=== PATIENT | male | born 1950 | race Caucasian/White ===

== ENCOUNTER 2020-01-22 22:10 | Emergency (ER) | payer OTHER ==
[~2020-01-22] VITALS: Ht 170.2 cm; Wt 74.8 kg
[~2020-01-22 22:10] MED LIST: ALMOTRIPTAN; AMIT25; AMOCLA875 PO; BP MEDS X2; CYCL10 PO; DICLOFENAC SOD100 G1 TOP; DOCU100 PO; FISH OIL 1,0001 EAC2 PO; FLUT.05NI; GABA300 PO; HYDACE10B PO; HYDACE5; HYDACE5 PO; HYDHCL25 PO; HYOS.375ER PO; IBUP200; IBUP800 PO; LORA.5 PO; METAMUCIL660 GM PO; OXYACE7.5T PO; OXYC5 PO; PARO20; PRED20; PRED20 PO; PROC25S PR; PROM25 PO; PROP40; Pravachol40 MG PO; Prazosin HCl2 MG PO; RXHYOS.125 PO; TIZA4 PO; TRAM50; TRAM50 PO; VENL75ER PO; Vitamin D2000 UNIT PO
[2020-01-22] MEDS ORDERED: VERA180ERB PO (22:27)
[2020-01-22] MEDS ORDERED: KEFLEX500 MG PO (23:41)
== END 2020-01-22 23:46 | disposition home or self-care (01) ==
LOC: ER 22:10
DX: L72.3 Sebaceous cyst (principal); F41.9 Anxiety disorder, unspecified; F17.210 Nicotine dependence, cigarettes, uncomplicated; Z88.5 Allergy status to narcotic agent; Z79.899 Other long term (current) drug therapy
CPT/HCPCS: 10160; 99282-25

== ENCOUNTER 2021-08-22 17:24 | Emergency (ER) | payer OTHER ==
[~2021-08-22] VITALS: Ht 172.7 cm; Wt 76.2 kg
[~2021-08-22 17:24] MED LIST changes: +KEFLEX500 MG PO; +VERA180ERB PO
[2021-08-22] MEDS ORDERED: HYDR1TAB94 PO (18:43)
== END 2021-08-22 19:03 | disposition home or self-care (01) ==
LOC: ER 17:24
DX: M25.562 Pain in left knee (principal); F17.210 Nicotine dependence, cigarettes, uncomplicated; W01.0XXA Fall on same level from slipping, tripping and stumbling without subsequent striking against object, initial encounter; Z79.899 Other long term (current) drug therapy; Z88.5 Allergy status to narcotic agent
CPT/HCPCS: 73562-LT; A9270

== ENCOUNTER 2021-08-26 09:41 | Day surgery (SDC) | payer OTHER ==
[~2021-08-26] VITALS: Ht 172.7 cm; Wt 76.4 kg
[~2021-08-26 09:41] MED LIST changes: +HYDR1TAB94 PO
--- NOTE | 2021-08-26 10:32 | NUR ---
Ambulatory in Day Surgery History, Chart, Medications and Allergies reviewed before start of procedure. Lungs clear T/O to Auscultation. Patient confirms NPO status and agrees with scheduled surgery. Pre-Op teaching done. Pt verbalizes understanding. Patient States Post-Procedure ride home has been arranged.
[2021-08-26] MEDS ORDERED: PRAM.5 PO (10:36)
--- NOTE | 2021-08-26 13:35 | NUR ---
PT VERY VERY RESTLESS, CLIMBING OUT OF BED. AT BS TRYING TO CALM PT. PT STANDING ON RIGHT LEG USING WALK TO NOT BEAR WT ON LEFT LEG. EDUCATED TO NOT BEAR WT. PT'S BACK PAIN LESSENING WITH STANDING PT BECOMING LESS RESTLESS
--- NOTE | 2021-08-26 14:15 | NUR ---
PT A LITTLE MORE CALM AND LESS RESTLESS. 2ND PAIN PILL GIVEN. Discharge instructions reviewed with patient AND . Patient verbalizes understanding. Copy given to patient to take home. Dressing to procedure site clean, dry, intact with no visible drainage, swelling, erythema or bruising noted. MOVING TOES WELL, PINK, TOES COOL AND CAP REFILL 4. Discharged via wheelchair to private car for ride home WITH
== END 2021-08-26 23:11 | disposition home or self-care (01) ==
LOC: ORSCMMR 09:41 → ORD 12:45 → ORSCMMR 23:11
PROVIDERS: Orthopaedic Surgery
PROC: 0LQM0ZZ Repair Left Upper Leg Tendon, Open Approach (ICD-10-PCS; principal; 2021-08-26 10:30)
DX: S76.122A Laceration of left quadriceps muscle, fascia and tendon, initial encounter (principal); I10 Essential (primary) hypertension; G47.33 Obstructive sleep apnea (adult) (pediatric); F43.10 Post-traumatic stress disorder, unspecified; F17.210 Nicotine dependence, cigarettes, uncomplicated; Z79.899 Other long term (current) drug therapy
CPT/HCPCS: A9270; J0171; J0690; J1100; J1885; J2250; J2270; J2405; J2704; J2795; J3010; J7120

== ENCOUNTER 2022-12-09 18:41 | Emergency (ER) | payer OTHER ==
[~2022-12-09] VITALS: Ht 172.7 cm; Wt 77.1 kg
[~2022-12-09 18:41] MED LIST changes: +PRAM.5 PO
[2022-12-09 18:51] VITALS: BP 165/99
== END 2022-12-09 20:37 | disposition home or self-care (01) ==
LOC: ER 18:41
DX: S76.111A Strain of right quadriceps muscle, fascia and tendon, initial encounter (principal); W01.0XXA Fall on same level from slipping, tripping and stumbling without subsequent striking against object, initial encounter; Z88.5 Allergy status to narcotic agent; Z79.899 Other long term (current) drug therapy; F43.10 Post-traumatic stress disorder, unspecified; F17.210 Nicotine dependence, cigarettes, uncomplicated
CPT/HCPCS: 29505; 73562-RT; 99283-25

== ENCOUNTER 2023-01-12 08:31 | Day surgery (SDC) | payer OTHER ==
[~2023-01-12] VITALS: Ht 172.7 cm; Wt 76.9 kg
[2023-01-12] VITALS (15 sets, daily range): BP systolic 137–181; BP diastolic 85–133
[~2023-01-12 08:31] MED LIST changes: +Prinivil10 MG PO; +VERA240ER PO
--- NOTE | 2023-01-12 08:45 | NUR ---
PT TO DAY SURGERY FOR RIGHT QUADRICEPT TENDON REPAIR; PT AT BEDSIDE AND IS RIDE HOME. PLAN OF CARE DISCUSSED.
--- NOTE | 2023-01-12 14:27 | NUR ---
0854 Patient up to Ambulate independently. Gait steady. Discharge instructions reviewed with patient. Patient verbalizes understanding. Copy given to patient to take home. Dressing to procedure site clean, dry, intact with no visible drainage, swelling, erythema or bruising noted. Patient States Post-Procedure ride home has been arranged. Discharged via wheelchair to private car for ride home. PT BELONGINGS AND CRUTCH RETURNED TO PT.
== END 2023-01-12 13:55 | disposition home or self-care (01) ==
LOC: ORSCMMR 08:31
PROVIDERS: Orthopaedic Surgery
PROC: 0LQL0ZZ Repair Right Upper Leg Tendon, Open Approach (ICD-10-PCS; principal; 2023-01-12 10:00)
DX: S76.111A Strain of right quadriceps muscle, fascia and tendon, initial encounter (principal); W18.09XA Striking against other object with subsequent fall, initial encounter; I10 Essential (primary) hypertension; F17.210 Nicotine dependence, cigarettes, uncomplicated; F43.10 Post-traumatic stress disorder, unspecified; E78.5 Hyperlipidemia, unspecified; Z79.899 Other long term (current) drug therapy
CPT/HCPCS: A9270; J0690; J1100; J1170; J1790; J1885; J2371; J2405; J2704; J3010; J7120

== ENCOUNTER 2023-06-09 11:24 | Emergency (ER) | payer OTHER ==
[~2023-06-09] VITALS: Ht 172.7 cm; Wt 77.1 kg
[~2023-06-09 11:24] MED LIST changes: +Amiodarone HCl200 MG PO; +ERYT.5TO BOTHEYES; +FURO40 PO; +JARDIANCE10 MG PO; +METO50ER PO; +NICO21TP TOP; +SILD50TA PO; +SPIR25 PO; +XARELTO20 MG PO
[2023-06-09 11:27] VITALS: BP 84/62
== END 2023-06-09 13:15 | disposition left against medical advice (07) ==
LOC: ER 11:24
DX: R03.1 Nonspecific low blood-pressure reading (principal); Z53.29 Procedure and treatment not carried out because of patient's decision for other reasons; R07.89 Other chest pain; R42 Dizziness and giddiness; R06.02 Shortness of breath
CPT/HCPCS: 36415; 93005; 93010; 99282-25

== ENCOUNTER 2023-08-06 16:41 | Emergency (ER) | payer OTHER ==
[~2023-08-06] VITALS: Ht 172.7 cm; Wt 80.3 kg
[~2023-08-06 16:41] MED LIST changes: +Prednisone20 MG PO
[2023-08-06] MEDS ORDERED: ATOR40TA PO (17:21)
[2023-08-06] MEDS ORDERED: LOSARTAN-HCTZ1 EACH PO (17:22)
[2023-08-06] MEDS ORDERED: PRAZ2 INH (17:23)
[2023-08-06] MEDS ORDERED: SAVAYSA60 MG PO (17:24)
[2023-08-06 17:30] VITALS: BP 114/76
[2023-08-06] MEDS ORDERED: Ipratropium/Albuterol SulF 2.5-0.5MG/3 ML Amp INH ONE (17:40)
[2023-08-06 17:47] LABS: BASOPHILS ABSOLUTE AUTO 0.06 K/mm3 (0.00-0.23); BASOPHILS PERCENT AUTO 0 % (0-2); EOSINOPHILS ABSOLUTE AUTO 0.18 K/mm3 (0.00-0.68); EOSINOPHILS PERCENT AUTO 1 % (0-6); Hematocrit 42.8 % (37.0-53.0); Hemoglobin 13.5 g/dL (13.5-17.5); IMMATURE GRAN ABSOLUTE AUTO 0.08 K/mm3 (0.00-0.10); IMMATURE GRAN PERCENT AUTO 1 % (0-1); LYMPHOCYTES ABSOLUTE AUTO 2.67 K/mm3 (0.84-5.20); LYMPHOCYTES PERCENT AUTO 19 % (21-46); MONOCYTES ABSOLUTE AUTO 1.06 K/mm3 (0.16-1.47); MONOCYTES PERCENT AUTO 8 % (4-13); Mean Corpuscular HGB 27.9 pg (26.0-34.0); Mean Corpuscular HGB Conc 31.5 g/dL (31.5-36.5); Mean Corpuscular Volume 88 fL (80-100); Mean Platelet Volume 10.2 fL (9.1-12.4); NEUTROPHILS ABSOLUTE AUTO 9.93 K/mm3 (1.96-9.15); NEUTROPHILS PERCENT AUTO 71 % (41-73); Platelet Count 415 K/mm3 (150-400); RDW Coefficient Variation 16.6 % (11.7-14.2); RDW Standard Deviation 54.2 fL (35.1-46.3); Red Blood Cell Count 4.84 M/mm3 (4.30-5.90); White Blood Cell Count 13.98 K/mm3 (4.00-11.30)
[2023-08-06 18:10] LABS: Albumin, Blood 3.5 g/dL (3.4-5.0); Albumin/Globulin Ratio 0.9 (0.8-1.8); Bilirubin, Total 0.3 mg/dL (0.1-1.0); Bun/Creatinine Ratio 18.2 (12.0-20.0); Creatinine, Blood 1.21 mg/dL (0.60-1.20); Globulin, Blood 4.1 g/dL (2.2-4.0); Potassium, Blood 4.4 mmol/L (3.5-5.5); Total Protein, Blood 7.6 g/dL (6.4-8.2)
[2023-08-06 18:58] LABS: Influenza A, PCR NEGATIVE (NEGATIVE); Influenza B, PCR NEGATIVE (NEGATIVE); Resp Syncytial Virus, PCR NEGATIVE (NEGATIVE); SARS-Cov-2 (COVID-19) PCR, MMC NEGATIVE (NEGATIVE)
[2023-08-06] MEDS ORDERED: AMOCLA875 PO (19:37)
[2023-08-06] MEDS ORDERED: Amoxicillin/Clavulanate K 875 MG Tab PO ONE (19:40)
== END 2023-08-06 19:56 | disposition home or self-care (01) ==
LOC: ER 16:41
PROVIDERS: Emergency Medicine
DX: J18.9 Pneumonia, unspecified organism (principal); J44.1 Chronic obstructive pulmonary disease with (acute) exacerbation; I13.0 Hypertensive heart and chronic kidney disease with heart failure and stage 1 through stage 4 chronic kidney disease, or unspecified chronic kidney disease; I50.9 Heart failure, unspecified; N18.9 Chronic kidney disease, unspecified; I48.91 Unspecified atrial fibrillation; Z88.5 Allergy status to narcotic agent; Z88.8 Allergy status to other drugs, medicaments and biological substances; Z79.01 Long term (current) use of anticoagulants; Z79.899 Other long term (current) drug therapy
CPT/HCPCS: 0241U; 71046; 80053; 83880; 85025; 94640; 94664; 99285-25; A9270

== ENCOUNTER 2023-09-29 01:03 | Observation (INO) | payer OTHER ==
[~2023-09-29] VITALS: Ht 172.7 cm; Wt 80.3 kg
[~2023-09-29 01:03] MED LIST changes: +ATOR40TA PO; +LOSARTAN-HCTZ1 EACH PO; +PRAZ2 INH; +SAVAYSA60 MG PO
[2023-09-29 01:23] LABS: BASOPHILS ABSOLUTE AUTO 0.04 K/mm3 (0.00-0.23); BASOPHILS PERCENT AUTO 0 % (0-2); EOSINOPHILS ABSOLUTE AUTO 0.14 K/mm3 (0.00-0.68); EOSINOPHILS PERCENT AUTO 1 % (0-6); Hematocrit 39.8 % (37.0-53.0); Hemoglobin 12.6 g/dL (13.5-17.5); IMMATURE GRAN ABSOLUTE AUTO 0.03 K/mm3 (0.00-0.10); IMMATURE GRAN PERCENT AUTO 0 % (0-1); LYMPHOCYTES ABSOLUTE AUTO 2.93 K/mm3 (0.84-5.20); LYMPHOCYTES PERCENT AUTO 25 % (21-46); MONOCYTES ABSOLUTE AUTO 1.07 K/mm3 (0.16-1.47); MONOCYTES PERCENT AUTO 9 % (4-13); Mean Corpuscular HGB 28.3 pg (26.0-34.0); Mean Corpuscular HGB Conc 31.7 g/dL (31.5-36.5); Mean Corpuscular Volume 89 fL (80-100); Mean Platelet Volume 10.3 fL (9.1-12.4); NEUTROPHILS ABSOLUTE AUTO 7.38 K/mm3 (1.96-9.15); NEUTROPHILS PERCENT AUTO 64 % (41-73); Platelet Count 356 K/mm3 (150-400); RDW Coefficient Variation 16.6 % (11.7-14.2); Red Blood Cell Count 4.45 M/mm3 (4.30-5.90); White Blood Cell Count 11.59 K/mm3 (4.00-11.30)
[2023-09-29] MEDS ORDERED: NS 1,000 ML IV SCH ×2 (01:35→07:45)
[2023-09-29 01:38] LABS: Albumin, Blood 3.3 g/dL (3.4-5.0); Albumin/Globulin Ratio 0.9 (0.8-1.8); Bilirubin, Total 0.2 mg/dL (0.1-1.0); Bun/Creatinine Ratio 19.5 (12.0-20.0); Calcium, Blood 8.5 mg/dL (8.5-10.1); Creatinine, Blood 1.9 mg/dL (0.60-1.20); Globulin, Blood 3.8 g/dL (2.2-4.0); Potassium, Blood 3.9 mmol/L (3.5-5.5); Total Protein, Blood 7.1 g/dL (6.4-8.2)
[2023-09-29] MEDS ORDERED: Amiodarone HCl200 MG PO (01:44)
[2023-09-29] MEDS ORDERED: rOPINIRole HCl 0.25 MG Tab PO ONE (02:15)
[2023-09-29] MEDS ORDERED: Midodrine 5 MG Tab PO SCH (03:28)
[2023-09-29] MEDS ORDERED: NS 500 ML IV SCH (03:30)
[2023-09-29] MEDS ORDERED: Ipratropium/Albuterol SulF 2.5-0.5MG/3 ML Amp INH SCH (03:45)
[2023-09-29] MEDS ORDERED: Midodrine 5 MG Tab PO ONE (04:16)
[2023-09-29] MEDS ORDERED: Enoxaparin 40 MG/0.4 ML SYR SC SCH (09:00)
[2023-09-29] MEDS ORDERED: Metoprolol Succinate 50 MG TABCR PO SCH (09:00)
[2023-09-29] MEDS ORDERED: Apixaban 5 MG Tab PO SCH (09:00)
[2023-09-29] MEDS ORDERED: Amiodarone HCl 200 MG Tab PO SCH (09:00)
[2023-09-29 12:22] LABS: Albumin, Blood 3.1 g/dL (3.4-5.0); Anion Gap 9 mmol/L (3-11); Blood Urea Nitrogen 32 mg/dL (8-24); Bun/Creatinine Ratio 21.9 (12.0-20.0); CO2, Blood 24 mmol/L (21-32); Calcium, Blood 8.2 mg/dL (8.5-10.1); Chloride, Blood 113 mmol/L (98-108); Creatinine, Blood 1.46 mg/dL (0.60-1.20); Glomerular Filtration Rate 51 (60-); Glucose, Blood 100 mg/dL (70-99); Magnesium, Blood 2.5 mg/dL (1.6-2.4); Phosphorus, Blood 3.5 mg/dL (2.5-4.9); Potassium, Blood 3.4 mmol/L (3.5-5.5); Sodium, Blood 143 mmol/L (136-145)
[2023-09-29 13:00] VITALS: BP 111/84
[2023-09-29] MEDS ORDERED: Potassium Chloride 20 MEQ/15 ML UDC PO STA (13:12)
== END 2023-09-30 11:36 | disposition home or self-care (01) ==
LOC: ER 01:03 → ERHOLD 01:04
PROVIDERS: Emergency Medicine; Internal Medicine; ADMIT Family Medicine
DX: I95.9 Hypotension, unspecified (principal); N17.9 Acute kidney failure, unspecified; R79.89 Other specified abnormal findings of blood chemistry; J96.01 Acute respiratory failure with hypoxia; J44.9 Chronic obstructive pulmonary disease, unspecified; I11.0 Hypertensive heart disease with heart failure; I50.22 Chronic systolic (congestive) heart failure; I48.20 Chronic atrial fibrillation, unspecified; E87.6 Hypokalemia; N40.0 Benign prostatic hyperplasia without lower urinary tract symptoms; F17.210 Nicotine dependence, cigarettes, uncomplicated; Z66 Do not resuscitate; Z88.5 Allergy status to narcotic agent; Z88.8 Allergy status to other drugs, medicaments and biological substances; Z79.899 Other long term (current) drug therapy
CPT/HCPCS: 71045; 80053; 80069; 83735; 83880; 84484; 85025; 93005; 93010; 99285-25; A9270; G0378; J7030

== ENCOUNTER 2024-03-23 21:04 | Inpatient (IN) | payer OTHER ==
[~2024-03-23] VITALS: Ht 172.7 cm; Wt 77.3 kg
[2024-03-23 22:10] LABS: BASOPHILS ABSOLUTE AUTO 0.02 K/mm3 (0.00-0.23); BASOPHILS PERCENT AUTO 0 % (0-2); EOSINOPHILS ABSOLUTE AUTO 0.03 K/mm3 (0.00-0.68); EOSINOPHILS PERCENT AUTO 0 % (0-6); Hematocrit 38.4 % (37.0-53.0); Hemoglobin 12.1 g/dL (13.5-17.5); IMMATURE GRAN ABSOLUTE AUTO 0.07 K/mm3 (0.00-0.10); IMMATURE GRAN PERCENT AUTO 0 % (0-1); LYMPHOCYTES ABSOLUTE AUTO 1.39 K/mm3 (0.84-5.20); LYMPHOCYTES PERCENT AUTO 7 % (21-46); MONOCYTES ABSOLUTE AUTO 1.85 K/mm3 (0.16-1.47); MONOCYTES PERCENT AUTO 10 % (4-13); Mean Corpuscular HGB 27.7 pg (26.0-34.0); Mean Corpuscular HGB Conc 31.5 g/dL (31.5-36.5); Mean Corpuscular Volume 88 fL (80-100); NEUTROPHILS PERCENT AUTO 82 % (41-73); Platelet Count 325 K/mm3 (150-400); RDW Coefficient Variation 16.3 % (11.7-14.2); RDW Standard Deviation 52.5 fL (35.1-46.3); Red Blood Cell Count 4.37 M/mm3 (4.30-5.90); White Blood Cell Count 18.76 K/mm3 (4.00-11.30)
[2024-03-23 22:36] LABS: Albumin, Blood 3.5 g/dL (3.4-5.0); Albumin/Globulin Ratio 0.9 (0.8-1.8); Bilirubin, Total 0.7 mg/dL (0.1-1.0); Bun/Creatinine Ratio 23.2 (12.0-20.0); Calcium, Blood 9.3 mg/dL (8.5-10.1); Creatinine, Blood 1.12 mg/dL (0.60-1.20); Potassium, Blood 4.2 mmol/L (3.5-5.5); Total Protein, Blood 7.5 g/dL (6.4-8.2)
[2024-03-23] MEDS ORDERED: ALBU2.5V5 INH (22:53)
[2024-03-24] MEDS ORDERED: Ipratropium/Albuterol SulF 2.5-0.5MG/3 ML Amp INH ONE (00:40)
[2024-03-24 01:26] LABS: CORONAVIRUS COVID-19 AG Negative (NEGATIVE); INFLUENZA A AG Negative (NEGATIVE); INFLUENZA B AG Negative (NEGATIVE)
[2024-03-24] MEDS ORDERED: CefTRIAXone Sodium 1,000 MG in NS 100 ML IV ONE (01:35)
[2024-03-24] MEDS ORDERED: Azithromycin 250 MG Tab PO ONE (01:35)
[2024-03-24] MEDS ORDERED: Acetaminophen 325 MG TABLET PO PRN (02:10)
[2024-03-24] MEDS ORDERED: Ipratropium/Albuterol SulF 2.5-0.5MG/3 ML Amp INH SCH (02:10)
[2024-03-24] MEDS ORDERED: FLU VACC TS2024-25(6MOS UP)/PF 45 MCG/0.5 ML SYRINGE IM ONE (02:10)
[2024-03-24 05:21] LABS: BASOPHILS ABSOLUTE AUTO 0.04 K/mm3 (0.00-0.23); BASOPHILS PERCENT AUTO 0 % (0-2); EOSINOPHILS ABSOLUTE AUTO 0.05 K/mm3 (0.00-0.68); EOSINOPHILS PERCENT AUTO 0 % (0-6); Hematocrit 38.1 % (37.0-53.0); IMMATURE GRAN ABSOLUTE AUTO 0.09 K/mm3 (0.00-0.10); IMMATURE GRAN PERCENT AUTO 1 % (0-1); LYMPHOCYTES ABSOLUTE AUTO 1.41 K/mm3 (0.84-5.20); LYMPHOCYTES PERCENT AUTO 8 % (21-46); MONOCYTES ABSOLUTE AUTO 2.21 K/mm3 (0.16-1.47); MONOCYTES PERCENT AUTO 12 % (4-13); Mean Corpuscular HGB 27.5 pg (26.0-34.0); Mean Corpuscular HGB Conc 31.5 g/dL (31.5-36.5); Mean Corpuscular Volume 87 fL (80-100); Mean Platelet Volume 10.4 fL (9.1-12.4); NEUTROPHILS ABSOLUTE AUTO 14.18 K/mm3 (1.96-9.15); NEUTROPHILS PERCENT AUTO 79 % (41-73); Platelet Count 316 K/mm3 (150-400); RDW Coefficient Variation 16.6 % (11.7-14.2); RDW Standard Deviation 53.3 fL (35.1-46.3); Red Blood Cell Count 4.36 M/mm3 (4.30-5.90); White Blood Cell Count 17.98 K/mm3 (4.00-11.30)
[2024-03-24 05:46] LABS: Albumin, Blood 3.5 g/dL (3.4-5.0); Albumin/Globulin Ratio 0.9 (0.8-1.8); Bilirubin, Total 0.7 mg/dL (0.1-1.0); Bun/Creatinine Ratio 21.1 (12.0-20.0); Calcium, Blood 9.4 mg/dL (8.5-10.1); Creatinine, Blood 1.09 mg/dL (0.60-1.20); Globulin, Blood 4.1 g/dL (2.2-4.0); Magnesium, Blood 2.4 mg/dL (1.6-2.4); Potassium, Blood 4.2 mmol/L (3.5-5.5); Total Protein, Blood 7.6 g/dL (6.4-8.2)
[2024-03-24] MEDS ORDERED: Furosemide 10 MG/ML 4ML Vial IV ONE (08:00)
[2024-03-24] MEDS ORDERED: GuaiFENesin 600 MG TabCR PO SCH (09:00)
[2024-03-24] MEDS ORDERED: Lactobacil 2-S.Thermo-Bifido 1 1 Cap PO SCH (09:00)
[2024-03-24 09:43] LABS: Base Excess Venous 3.3 mmol/L; Bicarbonate Venous 26.4 mmol/L (24.0-30.0); PCO2 Venous 45.7 mmHg (38-42)
[2024-03-24 09:53] LABS: Adenovirus Not Detected (NOT DETECT); Bordetella pertussis Not Detected (NOT DETECT); Chlamydophila pneumoniae Not Detected (NOT DETECT); Coronavirus 229E Not Detected (NOT DETECT); Coronavirus HKU1 Not Detected (NOT DETECT); Coronavirus NL63 Not Detected (NOT DETECT); Coronavirus OC43 Not Detected (NOT DETECT); Human Metapneumovirus Not Detected (NOT DETECT); Human Rhinovirus/Enterovirus Not Detected (NOT DETECT); Influenza A/2009-H1 Not Detected (NOT DETECT); Influenza A/H1 Not Detected (NOT DETECT); Influenza A/H3 Not Detected (NOT DETECT); Influenza B Not Detected (NOT DETECT); Mycoplasma pneumoniae Not Detected (NOT DETECT); Parainfluenza Virus 1 Not Detected (NOT DETECT); Parainfluenza Virus 2 Not Detected (NOT DETECT); Parainfluenza Virus 3 Not Detected (NOT DETECT); Parainfluenza Virus 4 Not Detected (NOT DETECT); Respiratory Syncytial Virus Not Detected (NOT DETECT); SARS-Cov-2 (COVID-19), BioFire Not Detected (NOT DETECT)
[2024-03-24] MEDS ORDERED: ACET500 PO (13:30)
[2024-03-24] MEDS ORDERED: EPLE25 PO (13:32)
[2024-03-24] MEDS ORDERED: OMEP20ER PO (13:34)
[2024-03-24] MEDS ORDERED: PRAZ2 PO ×2 (13:35→13:36)
[2024-03-24] MEDS ORDERED: ROSUVASTATIN CA10 MG PO (13:37)
[2024-03-24] MEDS ORDERED: SERT50 PO (13:38)
[2024-03-24] MEDS ORDERED: ALBU90OI6 INH (13:41)
[2024-03-24 15:42] LABS: Acinetobacter baumannii DNA Not Detected copy/mL (NOT DETECT); Enterobacter cloacae DNA Not Detected copy/mL (NOT DETECT); Escherichia coli DNA Detected Bin 10^5 copy/mL (NOT DETECT); Haemophilus influenzae DNA Not Detected copy/mL (NOT DETECT)
[2024-03-24 15:43] LABS: CTX-M Resistance Gene Not Detected; IMP Resistance Gene Not Detected; KPC Resistance Gene Not Detected; Klebsiella aerogenes DNA Not Detected copy/mL (NOT DETECT); Klebsiella oxytoca DNA Not Detected copy/mL (NOT DETECT); Klebsiella pneumoniae DNA Not Detected copy/mL (NOT DETECT); Moraxella catarrhalis DNA Detected Bin 10^5 copy/mL (NOT DETECT); Proteus sp DNA Not Detected copy/mL (NOT DETECT); Pseudomonas aeruginosa DNA Not Detected copy/mL (NOT DETECT); Serratia marcescens DNA Not Detected copy/mL (NOT DETECT); Staphylococcus aureus DNA Not Detected copy/mL (NOT DETECT); Streptococcus agalactiae DNA Not Detected copy/mL (NOT DETECT); Streptococcus pneumoniae DNA Not Detected copy/mL (NOT DETECT); Streptococcus pyogenes DNA Not Detected copy/mL (NOT DETECT)
[2024-03-24 15:44] LABS: Adenovirus DNA Not Detected (NOT DETECT); Chlamydia pneumonia Not Detected (NOT DETECT); Human Coronavirus RNA Not Detected (NOT DETECT); Human Metapneumovirus RNA Not Detected (NOT DETECT); Influenza virus A RNA Not Detected (NOT DETECT); Legionella pneumophila Not Detected (NOT DETECT); Mycoplasma pneumoniae Not Detected (NOT DETECT); NDM Resistance Gene Not Detected; OXA-48-like Resistance Gene Not Detected; Rhinovirus+Enterovirus RNA Not Detected (NOT DETECT); VIM Resistance Gene Not Detected
[2024-03-24 15:45] LABS: Influenza virus B RNA Not Detected (NOT DETECT); Parainfluenza virus RNA Not Detected (NOT DETECT); Respiratory syncytial Vir RNA Not Detected (NOT DETECT)
--- NOTE | 2024-03-24 15:55 | NUR ---
CALL PLACED TO PHYSICIAN IN RE PT WANTING TO TALK ABOUT CODE STATUS AND POSSIBLE WANTING TO CHANGE TO A DNR. PHYSICIAN STATED HE WOULD BE UP TO TALK TO PT LATER.
[2024-03-24 16:36] VITALS: BP 122/73
--- NOTE | 2024-03-24 17:42 | NUR ---
SHIFT SUMMARY PT ADMITTED FROM ED THIS SHIFT FOR ACUTE HYPOXIC RESP FAILURE. PT NOTED TO BE ON ROOM AIR WITH O2 93% AND ON CONT PULSE OX. PT NOTED TO BE ON TELE IN SINUS RYTHEM AND HR 60. PT NOTED TO BE A DAILY WT. PT HAD A LETTER THAT HE BROUGHT IN THAT HE STATED HIS WROTE WITH INSTRUCTION FROM HIS [employer]. "CHF AND NO COPD. NO PREDNISONE IT CAUSES INCREASE FLUID ON HEART. CARDIOVERSION FROM 12/09/23 FAILED. SCHEDULED FOR A CARDIAC ABLATION 04/29/24 WITH [facility]." COPY PLACED IN PT CHART AND ORIGINAL RETURNED TO PT. PT NOTED TO HAVE SOB WITH MILD EXERTION. PT NOTED TO REST THROUGHOUT THIS SHIFT WITH CALL LIGHT WITH IN REACH. PT CALLS APPROPRIATE AND MAKES NEEDS KNOWN.
[2024-03-24] MEDS ORDERED: Azithromycin 500 MG in NS 250 ML IV SCH (21:00)
[2024-03-24] MEDS ORDERED: CefTRIAXone Sodium 1,000 MG in NS 100 ML IV SCH (21:00)
[2024-03-24] MEDS ORDERED: NS 250 ML IV PRN (21:25)
[2024-03-24 22:19] VITALS: BP 131/82
[2024-03-25] VITALS (7 sets, daily range): BP systolic 131–166; BP diastolic 84–130
--- NOTE | 2024-03-25 05:48 | NUR ---
CALL FROM [facility]. PATIENT CONVERTED FROM SINUS ANGELLA IN THE 50'S TO AFIB IN THE 1 TEENS-PATIENT ASYMPTOMATIC. DR. GUIDRY NOTIFIED AND TO REVIEW PATIENTS CHART AND MAKE CHANGES IF NECESSARY.
--- NOTE | 2024-03-25 08:16 | NUR ---
SHIFT SUMMARY. PATIENT IS A&OX4. PATIENT CALLS APPROPRIATELY AND IS ABLE TO MAKE HIS NEEDS KNOWN. PATIENT HAS A HARSH, HACKING, MOIST, PRODUCTIVE COUGHT. PATIENT RECEIVING IV ABX ORDERED. PATIENT USING URINAL AT BEDSIDE INDEPENDENTLY. PATIENT DENIES ANY NEEDS AT THIS TIME-PATIENT IS PLEASANT AND COOPERATIVE WITH CARE. BED IS LOCKED IN THE LOWEST POSITION [facility] CALL LIGHT IN REACH. REPOR GIVEN TO DAYSHIFT NURSE.
[2024-03-25] MEDS ORDERED: Cefepime HCl 2,000 MG in NS 100 ML IV SCH (08:45)
[2024-03-25] MEDS ORDERED: Albuterol 2.5 MG/3 ML VIAL INH PRN (14:05)
[2024-03-25] MEDS ORDERED: Metoprolol Tartrate 1 MG/ML 5 ML VIAL IV ONE (15:30)
[2024-03-25] MEDS ORDERED: Rosuvastatin Calcium 10 MG Tab PO SCH (18:00)
--- NOTE | 2024-03-25 19:39 | NUR ---
PT A&OX4, VSS, RA, AFIB UP TO 130S ON TELE, MD AWARE, HOME RATE CONTROLL MEDS REORDERED. 1 TIME DOSE OF IV METOPROLOL INEFFECTIVE. PT REFUSED LAB DRAWS, EDUCATED ON IMPORTANCE OF ACURATE AND TIMELY LABS. SBA TO BATHROOM, CONTINENT. DENIES PAIN, COUGH AND WOB IMPROVING.
[2024-03-25] MEDS ORDERED: CefTRIAXone Sodium 1,000 MG in NS 100 ML IV SCH (21:00)
[2024-03-25] MEDS ORDERED: PRAZOSIN HCL PO SCH (21:00)
[2024-03-25] MEDS ORDERED: Apixaban 5 MG Tab PO SCH (21:00)
[2024-03-25] MEDS ORDERED: Metoprolol Succinate 50 MG TABCR PO SCH (21:00)
[2024-03-25] MEDS ORDERED: Prazosin HCl 1 MG Cap PO SCH (21:00)
[2024-03-26] VITALS (7 sets, daily range): BP systolic 92–153; BP diastolic 60–105
[2024-03-26 04:56] LABS: BASOPHILS ABSOLUTE AUTO 0.04 K/mm3 (0.00-0.23); BASOPHILS PERCENT AUTO 0 % (0-2); EOSINOPHILS ABSOLUTE AUTO 0.13 K/mm3 (0.00-0.68); EOSINOPHILS PERCENT AUTO 1 % (0-6); Hematocrit 41.6 % (37.0-53.0); Hemoglobin 12.8 g/dL (13.5-17.5); IMMATURE GRAN ABSOLUTE AUTO 0.05 K/mm3 (0.00-0.10); IMMATURE GRAN PERCENT AUTO 1 % (0-1); LYMPHOCYTES ABSOLUTE AUTO 1.66 K/mm3 (0.84-5.20); LYMPHOCYTES PERCENT AUTO 16 % (21-46); MONOCYTES ABSOLUTE AUTO 1.04 K/mm3 (0.16-1.47); MONOCYTES PERCENT AUTO 10 % (4-13); Mean Corpuscular HGB 27.1 pg (26.0-34.0); Mean Corpuscular HGB Conc 30.8 g/dL (31.5-36.5); Mean Corpuscular Volume 88 fL (80-100); Mean Platelet Volume 10.7 fL (9.1-12.4); NEUTROPHILS ABSOLUTE AUTO 7.27 K/mm3 (1.96-9.15); NEUTROPHILS PERCENT AUTO 71 % (41-73); Platelet Count 279 K/mm3 (150-400); RDW Standard Deviation 52.4 fL (35.1-46.3); Red Blood Cell Count 4.72 M/mm3 (4.30-5.90); White Blood Cell Count 10.19 K/mm3 (4.00-11.30)
--- NOTE | 2024-03-26 05:08 | NUR ---
SHIFT SUMMARY. PATIENT IS A&OX4. PATIENT REPORTS FEELING BETTER AND IMPROVEMENT IN WORK OF BREATHING AND COUGH. PATIENTS COUGH CONTINUES TO BE HARSH AND MOIST WITH LESS FREQUENCY-PATIENTS COUGH IS PRODUCTIVE. PATIENT RECEIVING IV ABX PER ORDERS. PATIENT IS A SBA TO THE BATHROOM BUT WILL GO AT TIMES WITHOUT CALLING. PATIENT IS HOPING TO GO HOME TODAY. PATIENTS BLOOD PRESSURE HAS BEEN SOFT THIS MORNING-SEE VITAL SIGNS. BED IS LOCKED IN THE LOWEST POSITION WITH CALL LIGHT IN REACH, CARE IS ONGOING.
[2024-03-26 05:32] LABS: Albumin, Blood 2.7 g/dL (3.4-5.0); Albumin/Globulin Ratio 0.6 (0.8-1.8); Bilirubin, Total 0.3 mg/dL (0.1-1.0); Bun/Creatinine Ratio 21.4 (12.0-20.0); Creatinine, Blood 1.03 mg/dL (0.60-1.20); Globulin, Blood 4.2 g/dL (2.2-4.0); Potassium, Blood 3.6 mmol/L (3.5-5.5); Total Protein, Blood 6.9 g/dL (6.4-8.2)
[2024-03-26] MEDS ORDERED: Omeprazole 20 MG CapCR PO SCH (06:00)
[2024-03-26] MEDS ORDERED: Empagliflozin 10 MG TAB PO SCH (09:00)
[2024-03-26] MEDS ORDERED: Sertraline HCl 50 MG Tab PO SCH (09:00)
[2024-03-26] MEDS ORDERED: Amiodarone HCl 200 MG Tab PO SCH (09:00)
[2024-03-26] MEDS ORDERED: Eplerenone 25 MG Tab PO SCH (09:00)
--- NOTE | 2024-03-26 13:12 | NUR ---
0945- DR LEONARDO AWARE RN HELD METOPROLOL FOR PARAMETERS SBP 98, RATE 90-110 AT REST, 120-150'S WITH ACTIVITY. WILL ADMIN AND F/U WITH VS
--- NOTE | 2024-03-26 19:59 | NUR ---
SUMMARY- PT A/O X4, INDEPENDANT IN THE ROOM. RESP UNLABORED, PT ON ROOM AIR. LUNGS COARSE RML. PT STATED PRODUCTIVE COUGH, ENC C&DB. CONT PULSE OX IN USE. NEB'S ROUTINE. TELE A FIB 90-110 AT REST. HELD METOPROLOL INITIALLY THIS AM UNTIL CHECKING WITH DR LEONARDO ABOUT LOW BP AND TACHY RATE, GAVE AM METOPROLOL DOSE. HR MAX RATE TODAY 135, MAINTAINING 90-110. PLAN TO MANAGE A-FIB AND LIKELY BE ABLE TO DC HOME TOMORROW. REPORTED TO LUL CHAN
[2024-03-27 00:41] VITALS: BP 97/59
[2024-03-27 04:08] VITALS: BP 150/99
[2024-03-27 05:19] LABS: BASOPHILS ABSOLUTE AUTO 0.04 K/mm3 (0.00-0.23); BASOPHILS PERCENT AUTO 0 % (0-2); EOSINOPHILS ABSOLUTE AUTO 0.14 K/mm3 (0.00-0.68); EOSINOPHILS PERCENT AUTO 1 % (0-6); Hematocrit 41.6 % (37.0-53.0); Hemoglobin 12.9 g/dL (13.5-17.5); IMMATURE GRAN ABSOLUTE AUTO 0.04 K/mm3 (0.00-0.10); IMMATURE GRAN PERCENT AUTO 0 % (0-1); LYMPHOCYTES ABSOLUTE AUTO 1.82 K/mm3 (0.84-5.20); LYMPHOCYTES PERCENT AUTO 17 % (21-46); MONOCYTES ABSOLUTE AUTO 1.04 K/mm3 (0.16-1.47); MONOCYTES PERCENT AUTO 10 % (4-13); Mean Corpuscular HGB 27.2 pg (26.0-34.0); Mean Corpuscular Volume 88 fL (80-100); Mean Platelet Volume 10.7 fL (9.1-12.4); NEUTROPHILS ABSOLUTE AUTO 7.46 K/mm3 (1.96-9.15); NEUTROPHILS PERCENT AUTO 71 % (41-73); Platelet Count 322 K/mm3 (150-400); RDW Coefficient Variation 15.9 % (11.7-14.2); RDW Standard Deviation 51.8 fL (35.1-46.3); Red Blood Cell Count 4.74 M/mm3 (4.30-5.90); White Blood Cell Count 10.54 K/mm3 (4.00-11.30)
[2024-03-27 05:40] LABS: Bun/Creatinine Ratio 17.4 (12.0-20.0); Calcium, Blood 9.3 mg/dL (8.5-10.1); Creatinine, Blood 0.92 mg/dL (0.60-1.20); Potassium, Blood 3.9 mmol/L (3.5-5.5)
--- NOTE | 2024-03-27 06:34 | NUR ---
SHIFT SUMMARY. PATIENT IS A&OX4. CALLS APPROPRIATELY AND IS ABLE TO MAKE HIS NEEDS KNOWN. PATIENTS HEART RATE REMAINED IN THE 100-130'S MOST OF SHIFT, HEART RATE INCREASED WITH ACTIVITY. PATIENT RESTED ON AND OFF T/O NIGHT. PATIENT HAS A HISTORY OF PTSD AND CAN STARTLE EASILY. BED IS LOCKED IN THE LOWEST POSITION WITH CALL LIGHT IN REACH. CARE IS ONGOING.
[2024-03-27 07:26] VITALS: BP 120/79
[2024-03-27 11:43] VITALS: BP 122/86
[2024-03-27] MEDS ORDERED: CEFP200 PO (12:19)
[2024-03-27] MEDS ORDERED: VISBIOME 112.51 EACH PO (12:20)
[2024-03-27] MEDS ORDERED: GUAI600T33 PO (12:20)
--- NOTE | 2024-03-27 13:36 | NUR ---
PT DISCHARGED 1240, SENT HOME WITH BELONGINGS. WHEELCHAIR ESCORT OUT TO CAR.
== END 2024-03-27 12:53 | disposition home or self-care (01) | DRG 871 ==
LOC: ER 21:04 → ERHOLD 21:05 → MEDS 03-24 13:13
PROVIDERS: Family Medicine; Physician Assistant; Student in an Organized Health Care Education/Training Program; ADMIT Student in an Organized Health Care Education/Training Program
DX: A41.51 Sepsis due to Escherichia coli [E. coli] (principal); I50.23 Acute on chronic systolic (congestive) heart failure; J15.5 Pneumonia due to Escherichia coli; J96.01 Acute respiratory failure with hypoxia; N40.0 Benign prostatic hyperplasia without lower urinary tract symptoms; F32.A Depression, unspecified; I48.0 Paroxysmal atrial fibrillation; I11.0 Hypertensive heart disease with heart failure; Z88.8 Allergy status to other drugs, medicaments and biological substances; F17.210 Nicotine dependence, cigarettes, uncomplicated; M54.9 Dorsalgia, unspecified; D64.9 Anemia, unspecified; G89.29 Other chronic pain; F43.10 Post-traumatic stress disorder, unspecified; G25.81 Restless legs syndrome; F41.9 Anxiety disorder, unspecified; F15.10 Other stimulant abuse, uncomplicated; F14.10 Cocaine abuse, uncomplicated; Z91.148 Patient's other noncompliance with medication regimen for other reason; Z98.890 Other specified postprocedural states; Z88.5 Allergy status to narcotic agent; Z79.899 Other long term (current) drug therapy
CPT/HCPCS: 0202U; 0528U; 36415; 71046; 80048; 80053; 82803; 83690; 83735; 83880; 84145; 84484; 85025; 87070; 87077; 87205; 87428-QW; 93005; 93010; 94640; 94664; 94760; 94762; 96374; 99285-25; A9270; G0378; J0456; J0696; J1940; J7050

== ENCOUNTER 2024-10-19 14:20 | Emergency (ER) | payer OTHER ==
[~2024-10-19] VITALS: Ht 165.1 cm; Wt 65.8 kg
[~2024-10-19 14:20] MED LIST changes: +ACET500 PO; +ALBU2.5V5 INH; +ALBU90OI6 INH; +CEFP200 PO; +EPLE25 PO; +GUAI600T33 PO; +OMEP20ER PO; +PRAZ2 PO; +ROSUVASTATIN CA10 MG PO; +SERT50 PO; +VISBIOME 112.51 EACH PO
[2024-10-19 14:28] VITALS: BP 144/119
[2024-10-19] MEDS ORDERED: Ketorolac Tromethamine 30mg Vial IM ONE (15:35)
== END 2024-10-19 16:12 | disposition home or self-care (01) ==
LOC: ER 14:20
DX: S59.902A Unspecified injury of left elbow, initial encounter (principal); W11.XXXA Fall on and from ladder, initial encounter; J44.9 Chronic obstructive pulmonary disease, unspecified; I11.0 Hypertensive heart disease with heart failure; I50.9 Heart failure, unspecified; I48.91 Unspecified atrial fibrillation; F17.210 Nicotine dependence, cigarettes, uncomplicated; Z79.899 Other long term (current) drug therapy; Z88.8 Allergy status to other drugs, medicaments and biological substances
CPT/HCPCS: 73060; 73080; 96372; 99283-25; J1885